=== PATIENT | female | born 1965 | race Two or more races ===

== ENCOUNTER 2017-01-01 19:50 | Emergency (ER) | payer BC ==
[~2017-01-01] VITALS: Ht 149.9 cm; Wt 80.3 kg
[~2017-01-01 19:50] MED LIST: AMI25T; CETI10TA57 PO; LOSA50TA6
[2017-01-01 20:53] LABS: Basophils # (auto) 0 uL; Basophils % (auto) 0.4 % (0.0-2.0); Eosinophils # (auto) 0.2 uL; Eosinophils % (auto) 2.2 % (0.0-7.0); Hematocrit 39.2 % (36.0-46.0); Hemoglobin 13.2 g/dL (12.2-16.2); Lymphocytes # (auto) 2.6 uL; Lymphocytes % (auto) 25.7 % (10.0-50.0); Mean Corpuscular Hemoglobin 31.4 pg (28.0-32.0); Mean Corpuscular Hgb Conc. 33.8 g/dL (32.0-36.0); Mean Corpuscular Volume 92.9 fL (80.0-100.0); Mean Platelet Volume 8.8 fL (7.4-10.4); Monocytes # (auto) 0.7 uL; Monocytes % (auto) 6.9 % (0.0-12.0); Neutrophils # (auto) 6.5 uL; Neutrophils % (auto) 64.8 % (37.0-80.0); Platelet Count (auto) 254 10^3/uL (140-450); Red Cell Distribution Width 13.2 % (11.6-16.0); White Blood Cell 10.1 10^3/uL (4.4-10.8)
[2017-01-01 21:09] LABS: Albumin 3.5 g/dL (3.4-5.0); BUN/Creatinine Ratio 22.7; Bilirubin, Total 0.2 mg/dL (0.2-1.0); Calcium 8.6 mg/dL (8.5-10.1); Total Protein 7.6 g/dL (6.4-8.2)
[2017-01-01 21:20] VITALS: BP 156/82
[2017-01-01 21:23] LABS: B-Type Natriuretic Peptide 375.29 pg/mL (0-100); Temperature: 23.1 C (20.0-25.0)
== END 2017-01-02 00:40 | disposition left against medical advice (07) ==
LOC: ER 19:54
DX: M79.89 Other specified soft tissue disorders (principal); Z53.21 Procedure and treatment not carried out due to patient leaving prior to being seen by health care provider
CPT/HCPCS: 36415; 71010; 80053; 83880; 85025

== ENCOUNTER 2023-10-10 21:35 | Inpatient (IN) | payer BC ==
[~2023-10-10] VITALS: Ht 149.9 cm; Wt 82.0 kg
[~2023-10-10 21:35] MED LIST changes: -AMI25T; +AMIT-118; +LOSA50TA46; -LOSA50TA6
[2023-10-10 22:33] LABS: Basophils # (auto) 0 10 ^3/uL (0-0.2); Basophils % (auto) 0.1 % (0.0-2.0); Eosinophils # (auto) 0.2 10 ^3/uL (0-0.8); Eosinophils % (auto) 1.5 % (0.0-7.0); Hemoglobin 16.4 g/dL (12.2-16.2); Lymphocytes # (auto) 2.9 10 ^3/uL (0.4-5.4); Lymphocytes % (auto) 23.3 % (10.0-50.0); Mean Corpuscular Hemoglobin 31.6 pg (28.0-32.0); Mean Corpuscular Hgb Conc. 32.8 g/dL (32.0-36.0); Mean Corpuscular Volume 96.3 fL (80.0-100.0); Monocytes # (auto) 0.6 10 ^3/uL (0-1.3); Monocytes % (auto) 4.4 % (0.0-12.0); Neutrophils # (auto) 8.8 10 ^3/uL (1.6-8.6); Neutrophils % (auto) 70.7 % (37.0-80.0); Nucleated Red Blood Cells % 0.1 %; Red Cell Distribution Width 12.9 % (11.8-14.3); White Blood Cell 12.5 10^3/uL (4.4-10.8)
[2023-10-10 22:48] LABS: Alanine Aminotransferase 25 U/L (7-40); Albumin 4.3 g/dL (3.2-4.8); Alkaline Phosphatase 96 U/L (46-116); Anion Gap 7 (5-15); Aspartate Aminotransferase 23 U/L (13-40); BUN/Creatinine Ratio 11.4 (10.0-20.0); Bilirubin, Total 0.4 mg/dL (0.2-1.0); Blood Urea Nitrogen 12 mg/dL (9-23); Calcium 9.4 mg/dL (8.5-10.1); Carbon Dioxide 29 mmol/L (20-30); Chloride 103 mmol/L (98-107); Glucose 137 mg/dL (74-106); Potassium 4.2 mmol/L (3.5-5.1); Sodium 139 mmol/L (136-145)
[2023-10-10 22:49] LABS: Total Protein 7.3 g/dL (5.7-8.2)
[2023-10-10] MEDS: SODIUM CHLORIDE 0.9% 1,000 ML IVB ONE (23:15)
[2023-10-10] MEDS: MORPHINE SULFATE 4 MG/ML SYR/VIAL IV ONE (23:15)
[2023-10-10] MEDS: ONDANSETRON ODT 4 MG TAB PO ONE (23:15)
[2023-10-11] VITALS (7 sets, daily range): BP systolic 91–128; BP diastolic 41–78; PULSE 56–80; RESP 13–18; TEMP 97.9–98.5; O2SAT 96–98
[2023-10-11] MEDS ORDERED: MORPHINE SULFATE INJ 2 MG/ml SYRG IV PRN ×2 (00:30→01:30)
[2023-10-11] MEDS ORDERED: DOCUSATE SOD 100 MG CAP PO PRN (00:30)
[2023-10-11] MEDS ORDERED: HYDROcodone-ACET 5/325MG TAB PO PRN (00:30)
[2023-10-11] MEDS: SODIUM CHLORIDE 0.9% 1,000 ML IV SCH (00:30)
[2023-10-11] MEDS: ONDANSETRON HCL 4 MG/2 ML VIAL IV ONE (00:39)
[2023-10-11] MEDS: cefTRIAXone 1GM/50ML D5W 50 ML IV ONE (00:39)
[2023-10-11] MEDS ORDERED: hydrALAZINE HCL 20 MG/ML VL IV PRN (01:00)
[2023-10-11] MEDS: metroNIDAZOLE 500MG/100ML 100 ML IV ONE (01:10)
[2023-10-11] MEDS ORDERED: NITROGLYCERIN 0.4 MG SL TAB SL PRN (01:30)
[2023-10-11] MEDS: SODIUM CHLORIDE 0.9% 1,000 ML IV ONE (02:15)
[2023-10-11] MEDS ORDERED: ATOR20TA PO (06:50)
[2023-10-11] MEDS ORDERED: APIX5TAB PO (06:50)
[2023-10-11] MEDS ORDERED: METO25TA93 PO (06:50)
[2023-10-11] MEDS ORDERED: MAGN400T40 PO (06:50)
[2023-10-11] MEDS: metroNIDAZOLE 500MG/100ML 100 ML IV SCH (10:52)
[2023-10-11] MEDS: ONDANSETRON HCL 4 MG/2 ML VIAL IV PRN (10:53)
[2023-10-11] MEDS ORDERED: FLEC100T PO (15:23)
[2023-10-11] MEDS: FLECAINIDE ACETATE 50 MG TAB PO SCH (22:24)
[2023-10-11] MEDS: ATORVASTATIN 20 MG TAB PO SCH (22:24)
[2023-10-12 05:00] VITALS: BP 105/56; PULSE 67; RESP 18; TEMP 98; O2SAT 95
[2023-10-12 07:30] VITALS: PULSE 68; RESP 17; O2SAT 97
[2023-10-12 08:40] VITALS: BP 110/72; PULSE 68; RESP 16; TEMP 98.1; O2SAT 97
[2023-10-12] MEDS: METOPROLOL SUCCINATE XL 50 MG TAB PO SCH (10:36)
[2023-10-12] MEDS: LOSARTAN POTASSIUM 50 MG TAB PO SCH (10:36)
[2023-10-12] MEDS ORDERED: GADOTERATE MEG 10 MMOL/20ml INJ (0.5MMOL/ml) IV ONE (12:00)
[2023-10-12 12:30] VITALS: BP 121/59; PULSE 66; RESP 16; TEMP 97.9; O2SAT 94
[2023-10-12 16:15] VITALS: BP 117/58; PULSE 61; RESP 17; TEMP 97.9; O2SAT 94
[2023-10-12 22:00] VITALS: BP 111/47; PULSE 56; RESP 18; TEMP 97.6; O2SAT 96
[2023-10-12] MEDS: ACETAMINOPHEN 325 MG TAB PO PRN (22:09)
[2023-10-13 05:00] VITALS: BP 120/62; PULSE 59; RESP 18; TEMP 98; O2SAT 93
[2023-10-13 07:30] VITALS: PULSE 65; RESP 18; O2SAT 95
[2023-10-13 08:30] VITALS: BP 126/62; PULSE 65; RESP 16; TEMP 97.8; O2SAT 95
[2023-10-13 13:00] VITALS: BP 130/68; PULSE 56; RESP 17; TEMP 98.4; O2SAT 97
[2023-10-13] MEDS ORDERED: METR-344 PO (14:29)
[2023-10-13] MEDS ORDERED: METO-6 PO (14:29)
[2023-10-13 16:11] VITALS: BP 124/64; PULSE 66; RESP 17; TEMP 97.8; O2SAT 98
[2023-10-13 16:15] VITALS: BP 127/62; PULSE 55; RESP 17; TEMP 97.9; O2SAT 97
== END 2023-10-13 17:15 | disposition home or self-care (01) | DRG 391 ==
LOC: ER 21:35 → OVERFLOW 10-11 01:23 → CENTRAL 10-11 04:15
PROVIDERS: ADMIT Nurse Practitioner Family; ATTEND Internal Medicine
DX: K52.9 Noninfective gastroenteritis and colitis, unspecified (principal); K85.90 Acute pancreatitis without necrosis or infection, unspecified; R00.1 Bradycardia, unspecified; R55 Syncope and collapse; I10 Essential (primary) hypertension; I48.91 Unspecified atrial fibrillation
CPT/HCPCS: 36415; 70450; 74176; 74183; 76705; 80053; 83690; 84484; 85025; 93005; 96361; 96365; 96375; 99291; G0378; J2405; J3490; Q0162

== ENCOUNTER 2024-09-15 11:31 | Inpatient (IN) | payer BC ==
[~2024-09-15] VITALS: Ht 124.5 cm; Wt 82.5 kg
[~2024-09-15 11:31] MED LIST changes: -AMIT-118; +APIX5TAB PO; +ATOR20TA PO; +FLEC100T PO; +LOSA-534; -LOSA50TA46; +MAGN400T40 PO; +METO-6 PO; +METO25TA93 PO; +METR-344 PO
--- NOTE | 2024-09-15 12:10 | ED.PDOC ---
GI ASSESSMENT HPI Comments This is a 58-year-old female who comes in with chief complaint of epigastric pain since approximately 2:00 a.m. in the morning. The patient states that the pain is sharp and radiates towards the right upper quadrant as well as towards the back. The patient denies any vomiting, nausea or diarrhea. At this time she states that the pain is a 10/10. She denies any history of this in the past. There has been no dysuria and she also states that the pain increases with deep respiration. There has been no fever or chills. The patient also denies any trauma. Chief Complaint: Abdominal Pain Time Seen by MD: 11:47 Primary Care Provider: pamela Tucker Notes: Nurses Notes, Medications, Allergies (No allergies to medications) Allergies: Coded Allergies: NO KNOWN ALLERGIES (Unverified , 06/02/15) Home Meds Active Scripts Metronidazole (Flagyl) 500 Mg Tab, 500 MG PO TID for 5 Days, #15 TAB Prov:VALEROMADHAVI Dempsey Jessica DO 10/13/23 Metoprolol Succinate (Toprol Xl) 50 Mg Tab, 25 MG PO DAILY for 30 Days, #15 TAB 3 Refills Prov:MADHAVI VALERO Jessica DO 10/13/23 Reported Medications Flecainide Acetate (Flecainide Acetate) 100 Mg Tab, 100 MG PO BID, TAB 10/11/23 Magnesium Oxide (MAGNESIUM OXIDE) 400 Mg Tab, 1 TAB PO DAILY, #30 TAB 5 Refills 10/11/23 Metoprolol Succinate (Metoprolol Succinate Er) 25 Mg Tab, 1 TAB PO DAILY, #30 TAB 5 Refills 10/11/23 Atorvastatin Calcium (Lipitor) 20 Mg Tab, 1 TAB PO DAILY, #90 TAB 1 Refill 10/11/23 Apixaban Base (ELIQUIS) 5 Mg Tab, 5 MG PO BID, TAB 10/11/23 Cetirizine Hcl (Zyrtec Hives Relief) 10 Mg Tab, 1 TAB PO PRN, #30 TAB 5 Refills 06/03/16 Losartan Potassium (Losartan Potassium) 50 Mg Tab, 50, #60 1 tab daily 06/03/16 Information Source: Patient Mode of Arrival: Ambulatory Timing: Hours (Started at 2:00 a.m. 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 History Family History Family History: Family hx of DM, Family hx of Cancer Social History Smoker: Non-Smoker Alcohol: Denies ETOH Use Drugs: Denies Drug Use Lives In: Home Constitutional: denies: chills, diaphoresis, fatigue, fever, malaise, sweats, weakness, others EENTM: denies: blurred vision, double vision, ear bleeding, ear discharge, ear drainage, ear pain, ear ringing, eye pain, eye redness, hearing loss, mouth pain, mouth swelling, nasal discharge, nose bleeding, nose congestion, nose pain, photophobia, tearing, throat pain, throat swelling, voice changes, others Respiratory: denies: cough, hemoptysis, orthopnea, SOB at rest, shortness of breath, SOB with excertion, stridor, wheezing, others Cardiovascular: denies: chest pain, dizzy spells, diaphoresis, Dyspnea on exertion, edema, irregular heart beat, left arm pain, lightheadedness, palpitations, PND, syncope, others Gastrointestinal: reports: abdominal pain; denies: abdomen distended, blood streaked bowels, constipated, diarrhea, dysphagia, difficulty swallowing, hematemesis, melena, nausea, poor appetite, poor fluid intake, rectal bleeding, rectal pain, vomiting, others Genitourinary: denies: abnormal vagina bleeding, burning, dyspareunia, dysuria, flank pain, frequency, hematuria, incontinence, pain, , vagina discharge, urgency, others Neurological: denies: dizziness, fainting, headache, left sided numbness, left sided weakness, numbness, paresthesia, pre-existing deficit, right sided numbness, right sided weakness, seizure, speech problems, tingling, tremors, wea kness, others Musculoskeletal: denies: back pain, gout, joint pain, joint swelling, muscle pain, muscle stiffness, neck pain, others Integumetry: denies: bruises, change in color, change in hair/nails, dryness, l aceration, lesions, lumps, rash, wounds, others Allergic/Immunocompromised: denies: Difficulty Healing, Frequent Infections, Hives, Itching, others Hematologic/Lymphatic: denies: anemia, blood clots, easy bleeding, easy bruising, swollen glands, others Endocrine: denies: excessive hunger, excessive sweating, excessive thirst, excessive urination, flushing, intolerance to cold, intolerance to heat, unexplained weight gain, unexplained weight loss, others Psychiatric: denies: anxiety, bipolar disorder, depression, hopeless, panic disorder, schizophrenia, sleepless, suicidal, others Physical Exam General Appearance: Moderate Distress HEENT: Normal ENT Inspection, Pharynx Normal, TMs Normal Neck: Full Range of Motion, Non-Tender, Normal, Normal Inspection Respiratory: Chest Non-Tender, Lungs Clear, No Accessory Muscle Use, No Re spiratory Distress, Normal Breath Sounds Cardiovascular: No Edema, No JVD, No Murmur, No Gallop, Normal Peripheral Pulses, Regular Rate/Rhythm Breast Exam: Deferred Gastrointestinal: Epigastric, No Organomegaly, No Pulsatile Mass, Normal Bowel Sounds, Soft, Tenderness Genitalia: Deferred Pelvic: Deferred Rectal: Deferred Extremities: No calf tenderness, Normal capillary refill, Normal inspection, Normal range of motion, Non-tender, No pedal edema Musculoskeletal : Apperance: Normal Neurologic: Alert, image scientist II-XII nml as Tested, No Motor Deficits, Normal Affect, Normal Mood, No Sensory Deficits Cerebellar Function: Normal Reflexes: Normal Skin: Dry, Normal Color, Warm Lymphatic: No Adenopathy EKG EKG : Pulse Rate (adult): 65 [place]: Normal Cardiac Rhythm: NSR ST: Nonsp Was a procedure done? Was a procedure done?: No GI differential Dx Differential Diagnosis: Diverticular disease, Gastritis/PUD, Gastroenteritis, Pancreatitis, Electrolyte Imbalance, Food Poisoning X-Ray, Labs, Meds, VS Vital Signs Date Time Temp Pulse Resp B/P (MAP) Pulse Ox O2 Delivery O2 Flow Rate FiO2 09/15/24 12:50 98.1 69 16 140/96 (111) 97 98.1 09/15/24 12:50 69 16 97 Room Air* 0 21 09/15/24 12:10 65 09/15/24 12:06 65 09/15/24 11:53 98.3 73 17 135/53 (80) 97 Lab Test 09/15/24 13:11 Range/Units White Blood Count 9.4 4.4-10.8 10^3/uL Red Blood Count 4.55 4.0-5.20 10^6/uL Hemoglobin 14.6 12.2-16.2 g/dL Hematocrit 43.5 36.0-46.0 % Mean Corpuscular Volume 95.5 80.0-100.0 fL Mean Corpuscular Hemoglobin 32.0 28.0-32.0 pg Mean Corpuscular Hemoglobin Concent 33.5 32.0-36.0 g/dL Red Cell Distribution Width 12.8 11.8-14.3 % Platelet Count 244 140-450 10^3/uL Mean Platelet Volume 8.3 6.9-10.8 fL Neutrophils (%) (Auto) 65.8 37.0-80.0 % Lymphocytes (%) (Auto) 23.2 10.0-50.0 % Monocytes (%) (Auto) 7.6 0.0-12.0 % Eosinophils (%) (Auto) 3.0 0.0-7.0 % Basophils (%) (Auto) 0.4 0.0-2.0 % Neutrophils # (Auto) 6.2 1.6-8.6 10 ^3/uL Lymphocytes # (Auto) 2.2 0.4-5.4 10 ^3/uL Monocytes # (Auto) 0.7 0-1.3 10 ^3/uL Eosinophils # (Auto) 0.3 0-0.8 10 ^3/uL Basophils # (Auto) 0 0-0.2 10 ^3/uL Nucleated Red Blood Cells 0.0 % Sodium Level 139 136-145 mmol/L Potassium Level 4.2 3.5-5.1 mmol/L Chloride Level 103 98-107 mmol/L Carbon Dioxide Level 27 20-31 mmol/L Anion Gap 9 5-15 Blood Urea Nitrogen 10 9-23 mg/dL Creatinine 0.66 0.550-1.02 mg/dL Glomerular Filtration Rate Calc 101 >90 mL/min BUN/Creatinine Ratio 15.2 10.0-20.0 Serum Glucose 93 74-106 mg/dL Calcium Level 10.4 8.7-10.4 mg/dL Total Bilirubin 0.6 0.2-1.0 mg/dL Aspartate Amino Transferase (AST) 18 13-40 U/L Alanine Aminotransferase (ALT) 27 7-40 U/L Alkaline Phosphatase 111 46-116 U/L Total Protein 7.6 5.7-8.2 g/dL Albumin 4.5 3.2-4.8 g/dL Lipase 28 12-53 U/L Current Medications Medications (Trade) Dose Ordered Sig/Jayla Route Start Time Stop Time Status Last Admin Pantoprazole Sodium (Protonix) 40 mg ONCE ONCE IV 09/15/24 12:15 09/15/24 12:16 DC 09/15/24 12:50 EXAM: US GALLBLADDER IMPRESSION: 1. Heterogeneous echotexture of the liver with a 7.7 cm echogenic area and multiple hypoechoic areas. This may reflect heterogeneous echotexture in the setting of underlying parenchymal disease. No discrete mass was identified on prior MRI report from 2023. Either a repeat MRI with intravenous contrast may be obtained, or short-term follow-up ultrasound is recommended in 6 months. 2. No acute biliary pathology. At this time the patient will be admitted The patient was given Protonix 40 mg IV push The patient's CBC and chemistry panel is within normal limits The liver enzymes is negative The patient was being admitted Images Reviewed?: Images reviewed and evaluated by me Time of 1ST Reevaluation: 12:10 Reevaluation 1ST: Unchanged Patient Education/Counseling: Diagnosis, Treatment, Prognosis Family Education/Counseling: No Family Present Departure 1 Departure Time of Disposition: 14:12 Impression: Primary Impression: Intractable abdominal pain Disposition: 09 ADMITTED INPATIENT Admit to: Med Surg Condition: Fair Critical Care Note Critical Care Time?: No Stability Stability form required: Yes Unstable for transfer: ED Physician Assesment (Clinical assesment) Heart Score Heart Score: Heart Score Response (Comments) Value History N/A 0 EKG N/A 0 Age N/A 0 Risk Factors N/A 0 Troponin N/A 0 Total 0 I personally scribed for ALVERTO DE SANTIAGO MD ([email or web address]) on 09/15/24 at 13:00. Electronically submitted by Rod [email or web address]). ALVERTO DE SANTIAGO MD Sep 15, 2024 12:10
--- NOTE | 2024-09-15 12:48 | DVH ---
EXAM: US GALLBLADDER INDICATION: pain TECHNIQUE: Multiple real-time sonographic images were obtained of the right upper quadrant. COMPARISON: US ABDOMEN LIMITED on DOS: 10/11/23; report from prior MRI of the abdomen from 10/12/2023. FINDINGS: The liver demonstrates heterogeneous echotexture. There is an echogenic area in the right l obe measuring 6.2 x 5.1 x 7.7 cm, not felt to represent a discrete mass, with adjacent hypoechoic are as. The overall appearance is similar to the prior ultrasound from 10/11/2023. Liver measures 15 cm. There is hepatopedal color doppler flow in the main portal vein. There is no intrahepatic biliary erica gaviota dilatation. The gallbladder is without stones or sludge. The gallbladder wall measures 0.2 cm. The common michael e duct measures 0.3 cm. There is a negative sonographic Gomez's sign. The right kidney measures 9.1 cm. The right kidney is normal in contour, size, and shape. The echo genicity is normal. There is no hydronephrosis. The pancreas is not well visualized due to overlying bowel gas. Visualized portions of the aorta and inferior vena cava are unremarkable. No evidence of ascites. IMPRESSION: 1. Heterogeneous echotexture of the liver with a 7.7 cm echogenic area and multiple hypoechoic areas. This may reflect heterogeneous echotexture in the setting of underlying parenchymal disease. No disc rete mass was identified on prior MRI report from 2023. Either a repeat MRI with intravenous contras t may be obtained, or short-term follow-up ultrasound is recommended in 6 months. 2. No acute biliary pathology.
[2024-09-15 12:50] VITALS: PULSE 69; RESP 16; O2SAT 97
[2024-09-15] MEDS: PANTOPRAZOLE 40 MG/10 ML VIAL INJ IV ONE (12:50)
[2024-09-15 13:31] LABS: Basophils # (auto) 0 10 ^3/uL (0-0.2); Basophils % (auto) 0.4 % (0.0-2.0); Eosinophils # (auto) 0.3 10 ^3/uL (0-0.8); Hematocrit 43.5 % (36.0-46.0); Hemoglobin 14.6 g/dL (12.2-16.2); Lymphocytes # (auto) 2.2 10 ^3/uL (0.4-5.4); Lymphocytes % (auto) 23.2 % (10.0-50.0); Mean Corpuscular Hgb Conc. 33.5 g/dL (32.0-36.0); Mean Corpuscular Volume 95.5 fL (80.0-100.0); Monocytes # (auto) 0.7 10 ^3/uL (0-1.3); Monocytes % (auto) 7.6 % (0.0-12.0); Neutrophils # (auto) 6.2 10 ^3/uL (1.6-8.6); Neutrophils % (auto) 65.8 % (37.0-80.0); Platelet Count (auto) 244 10^3/uL (140-450); Red Blood Cells 4.55 10^6/uL (4.0-5.20); Red Cell Distribution Width 12.8 % (11.8-14.3); White Blood Cell 9.4 10^3/uL (4.4-10.8)
[2024-09-15 13:51] LABS: Alanine Aminotransferase 27 U/L (7-40); Albumin 4.5 g/dL (3.2-4.8); Alkaline Phosphatase 111 U/L (46-116); Anion Gap 9 (5-15); Aspartate Aminotransferase 18 U/L (13-40); BUN/Creatinine Ratio 15.2 (10.0-20.0); Bilirubin, Total 0.6 mg/dL (0.2-1.0); Blood Urea Nitrogen 10 mg/dL (9-23); Calcium 10.4 mg/dL (8.7-10.4); Carbon Dioxide 27 mmol/L (20-31); Chloride 103 mmol/L (98-107); Glucose 93 mg/dL (74-106); Lipase 28 U/L (12-53); Potassium 4.2 mmol/L (3.5-5.1); Sodium 139 mmol/L (136-145); Total Protein 7.6 g/dL (5.7-8.2)
[2024-09-15] MEDS ORDERED: DOCUSATE SOD 100 MG CAP PO PRN (17:15)
[2024-09-15] MEDS ORDERED: MORPHINE SULFATE INJ 2 MG/ml SYRG IV PRN ×2 (17:15→19:15)
[2024-09-15] MEDS ORDERED: ONDANSETRON HCL 4 MG/2 ML VIAL IV PRN (17:15)
[2024-09-15] MEDS ORDERED: HYDROcodone-ACET 5/325MG TAB PO PRN (17:15)
--- NOTE | 2024-09-15 19:08 | DVHHP2 ---
History of Present Illness Reason for Visit: Intractable abdominal pain History of Present Illness The patient is a 58-year-old female with past medical history of AFib, hypertension, and hyperlipidemia who presented to [facility] ED with complaint of epigastric abdominal pain. Patient reports symptoms as sharp, rad iates to worse her right upper quadrant, back, feeling palpitation, rating 10/10 numeric scale, getting worse that prompted this visit. Patient was seen and evaluated in the ED, laboratory data shows WBC 9.4, platelets 244, sodium 139, potassium 4.2, BUN 10, creatinine 0.66, GFR 101, glucose 93, lipase 28, blood pressure 140/96, heart rate 69, temperature 98.1 F, O2 saturation 97% on room air. Gallbladder ultrasound revealing heterogeneous echotexture of the liver with a 7.7 cm echogenic area and multiple hypoechoic areas, this may reflect heterogeneous echotexture in the setting of underlying parenchymal disease, no discrete mass was identified, no acute biliary pathology. Please see medication orders section in the computer. On my assessment, patient denied chest pain, no headache, no dizziness, no nausea, no vomiting, no fever, no chills. Patient was admitted for further evaluation and medical management. Past Medical History AFIB, High Lipids, HTN Past Surgical History section Family History Reviewed, noncontributory to the management of this case. Past Social History The patient lives at home, denies smoking, alcohol or illicit drugs abuse. Review of Systems Constitutional: Yes: Weakness; No: Fever, Chills, Sweats, Malaise, Other Eyes: No: Pain, Vision change, Conjunctivae inflammation, Eyelid inflammation, Other, Redness ENT: No: Ear pain, Ear discharge, Nose pain, Nose discharge, Nose congestion, Mouth pain, Mouth swelling, Throat pain, Throat swelling, Other Respiratory: No: Cough, Dry, Shortness of breath, SOB with excertion, Wheezing, Hemoptysis, Pleuritic Pain, Sputum, Wheezing, Other Cardiovascular: Palpitations; No: Chest Pain, Orthopnea, Paroxysmal Noc. Dyspnea, Edema, Lt Headedness, Other Gastrointestinal: Abdominal Pain; No: Nausea, Vomiting, Diarrhea, Constipation, Melena, Hematochezia, Other Genitourinary: No Dysuria, No Frequency, No Incontinence, No Hematuria, No Retention, No Other Musculoskeletal: No: other, neck pain, shoulder pain, arm pain, back pain, hand pain, leg pain, foot pain Skin: No: Rash, Lesions, Jaundice, Bruising, Other Neurological: No: Weakness, Numbness, Incoordination, Change in speech, Confusion, Seizures, Other Allergies: Coded Allergies: NO KNOWN ALLERGIES (Unverified , 06/02/15) Medications Current Medications Medications Dose Ordered Sig/Jayla Route Start Time Stop Time Status Last Admin Dose Admin Metoprolol Tartrate 25 mg BID PO 09/15/24 22:00 Atorvastatin Calcium 20 mg HS PO 09/15/24 22:00 Pantoprazole Sodium 40 mg DAILY IV 09/16/24 10:00 Sodium Chloride 1,000 ml @ 60 mls/hr [id number] IV 09/15/24 17:15 Acetaminophen/ Hydrocodone Bitart 1 tab Q4HP PRN PO 09/15/24 17:15 Ondansetron HCl 4 mg Q4HP PRN IV 09/15/24 17:15 Docusate Sodium 100 mg BIDPRN PRN PO 09/15/24 17:15 Acetaminophen 650 mg Q6HP PRN PO 09/15/24 17:15 Morphine Sulfate 2 mg Q4HPRN PRN IV 09/15/24 17:15 Apixaban 5 mg BID PO 09/15/24 22:00 Exam Vital Signs Vital Signs Date Time Temp Pulse Resp B/P (MAP) Pulse Ox O2 Delivery O2 Flow Rate FiO2 09/15/24 12:50 98.1 69 16 140/96 (111) 97 98.1 09/15/24 12:50 Room Air* 0 21 General Appearance: Alert, Oriented X3, Cooperative, No acute distress HEENT: Atraumatic, PERRLA, EOMI, Mucous membr. moist/pink Respiratory: Clear to auscultation, Normal air movement Cardiovascular: Regular rate, Normal S1, Normal S2, No murmurs Abdominal: Normal bowel sounds, Soft, No tenderness, No hepatospenomegaly, No masses Extremities: No clubbing, No cyanosis, No edema, Normal pulses, No tenderness/swelling Skin: No rashes, No breakdown, No significant lesion Neuro: Normal speech, Normal tone, Sensation intact, Cranial nerves 3-12 NL, Reflexes 2+, Other (Generalized weakness) Psych/Mental Status: Mental status NL, Mood NL Labs/Xrays Labs Test 09/15/24 13:11 Range/Units White Blood Count 9.4 4.4-10.8 10^3/uL Red Blood Count 4.55 4.0-5.20 10^6/uL Hemoglobin 14.6 12.2-16.2 g/dL Hematocrit 43.5 36.0-46.0 % Mean Corpuscular Volume 95.5 80.0-100.0 fL Mean Corpuscular Hemoglobin 32.0 28.0-32.0 pg Mean Corpuscular Hemoglobin Concent 33.5 32.0-36.0 g/dL Red Cell Distribution Width 12.8 11.8-14.3 % Platelet Count 244 140-450 10^3/uL Mean Platelet Volume 8.3 6.9-10.8 fL Neutrophils (%) (Auto) 65.8 37.0-80.0 % Lymphocytes (%) (Auto) 23.2 10.0-50.0 % Monocytes (%) (Auto) 7.6 0.0-12.0 % Eosinophils (%) (Auto) 3.0 0.0-7.0 % Basophils (%) (Auto) 0.4 0.0-2.0 % Neutrophils # (Auto) 6.2 1.6-8.6 10 ^3/uL Lymphocytes # (Auto) 2.2 0.4-5.4 10 ^3/uL Monocytes # (Auto) 0.7 0-1.3 10 ^3/uL Eosinophils # (Auto) 0.3 0-0.8 10 ^3/uL Basophils # (Auto) 0 0-0.2 10 ^3/uL Nucleated Red Blood Cells 0.0 % Sodium Level 139 136-145 mmol/L Potassium Level 4.2 3.5-5.1 mmol/L Chloride Level 103 98-107 mmol/L Carbon Dioxide Level 27 20-31 mmol/L Anion Gap 9 5-15 Blood Urea Nitrogen 10 9-23 mg/dL Creatinine 0.66 0.550-1.02 mg/dL Glomerular Filtration Rate Calc 101 >90 mL/min BUN/Creatinine Ratio 15.2 10.0-20.0 Serum Glucose 93 74-106 mg/dL Calcium Level 10.4 8.7-10.4 mg/dL Total Bilirubin 0.6 0.2-1.0 mg/dL Aspartate Amino Transferase (AST) 18 13-40 U/L Alanine Aminotransferase (ALT) 27 7-40 U/L Alkaline Phosphatase 111 46-116 U/L Total Protein 7.6 5.7-8.2 g/dL Albumin 4.5 3.2-4.8 g/dL Lipase 28 12-53 U/L PATIENT: ANANTH BROWN ACCT: [id number] UNIT: [id number] : 1965 LOC: ER ROOM / BED: / AGE / SEX: 58 / F ADM STATUS: REG ER SERVICE 1201 ORDERING PHYSICIAN: ALVERTO DE SANTIAGO MD PROCEDURE(s): GBUS - GALLBLADDER REASON: pain ORDER NUMBER(s): [id number], ACCESSION NUMBER(s): [id number] EXAM: US GALLBLADDER INDICATION: pain TECHNIQUE: Multiple real-time sonographic images were obtained of the right upper quadrant. COMPARISON: US ABDOMEN LIMITED on DOS: 10/11/23; report from prior MRI of the abdomen from 10/12/2023. FINDINGS: The liver demonstrates heterogeneous echotexture. There is an echogenic area in the right lobe measuring 6.2 x 5.1 x 7.7 cm, not felt to represent a discrete mass, with adjacent hypoechoic areas. The overall appearance is similar to the prior ultrasound from 10/11/2023. Liver measures 15 cm. There is hepatopedal color doppler flow in the main portal vein. There is no intrahepatic biliary ductal dilatation. The gallbladder is without stones or sludge. The gallbladder wall measures 0.2 cm. The common bile duct measures 0.3 cm. There is a negative sonographic Gomez's sign. The right kidney measures 9.1 cm. The right kidney is normal in contour, size, and shape. The echogenicity is normal. There is no hydronephrosis. The pancreas is not well visualized due to overlying bowel gas. Visualized portions of the aorta and inferior vena cava are unremarkable. No evidence of ascites. IMPRESSION: 1. Heterogeneous echotexture of the liver with a 7.7 cm echogenic area and multiple hypoechoic areas. This may reflect heterogeneous echotexture in the setting of underlying parenchymal disease. No discrete mass was identified on prior MRI report from 2023. Either a repeat MRI with intravenous contrast may be obtained, or short-term follow-up ultrasound is recommended in 6 months. 2. No acute biliary pathology. Assessment/Plan Assessment/Plan Intractable abdominal pain Generalized weakness Plan 1. Admit to med surge units 2. Breathing treatment 3. Pain control management 4. Management of fluids and electrolytes 5. Consultation for hospitalist 6. Diagnostic tests gallbladder ultrasound 7. DVT prophylaxis on SCDs 8. Repeat labs CBC, CMP in a.m. 9. Continue with current medical management 10. Treatment plan discussed with patient and RN. Patient verbalized understanding. Plan discussed with: Patient, Other (RN) My Orders Orders - YESSI OJEDA DNP Procedure Category Date Status Time Metoprolol Tartrate PHA 09/15/24 In Process Tablet (Lopressor Ta 22:00 Atorvastatin (Lipitor) PHA 09/15/24 In Process 22:00 Pantoprazole PHA 09/16/24 In Process (Protonix) 10:00 Allergies CURRY 09/15/24 In Process 17:15 Code Status CODE 09/15/24 Transmitted 17:15 Sodium Chloride 0.9% PHA 09/15/24 In Process 17:15 Oxygen Per Hour RT 09/15/24 Transmitted 17:15 Hydrocodone-Acet PHA 09/15/24 In Process 5/325mg Tab ([place] 17:15 Ondansetron Hcl PHA 09/15/24 In Process (Zofran) 17:15 Docusate Sodium PHA 09/15/24 In Process Capsule (Colace 17:15 Complete Blood Count LAB 09/16/24 Verified 04:00 Comprehensive LAB 09/16/24 Verified Metabolic Panel 04:00 Condition: Serious CURRY 09/15/24 In Process 17:15 Acetaminophen Tablet PHA 09/15/24 In Process (Tylenol Tablet) 17:15 Clear Liq Diet DIET 09/15/24 Transmitted Dinner Bedrest With Bathroom CURRY 09/15/24 In Process Privileg 17:15 Morphine Sulfate PHA 09/15/24 In Process Injection 17:15 Sequential CURRY 09/15/24 In Process Compression Device Apixaban (Eliquis) PHA 09/15/24 In Process 22:00 Problem List: (1) Intractable abdominal pain (2) Generalized weakness Date of Service: Sep 15, 2024 Billing Provider: YESSI OJEDA DNP Common Visit Codes: 62588-LHQIDBS INP/OBS CARE (HIGH) YESSI OJEDA DNP Sep 15, 2024 19:08
[2024-09-15] MEDS ORDERED: NITROGLYCERIN 0.4 MG SL TAB SL PRN (19:15)
[2024-09-15] MEDS: SODIUM CHLORIDE 0.9% 1,000 ML IV SCH (19:30)
[2024-09-15 20:07] VITALS: PULSE 113; RESP 18; O2SAT 98
[2024-09-15 21:15] VITALS: BP 113/59; PULSE 59; RESP 20; TEMP 97.8; O2SAT 96
[2024-09-15] MEDS: ACETAMINOPHEN 325 MG TAB PO PRN (21:39)
[2024-09-15] MEDS: ATORVASTATIN 20 MG TAB PO SCH (21:52)
[2024-09-15] MEDS: METOPROLOL TARTRATE 25 MG TAB PO SCH (21:52)
[2024-09-15] MEDS: APIXABAN 5 MG TAB PO SCH (22:16)
[2024-09-15] MEDS ORDERED: LOSA-535 PO (22:43)
[2024-09-15 23:39] VITALS: BP 121/83; PULSE 97; RESP 20; TEMP 97.6; O2SAT 97
[2024-09-16 01:00] VITALS: BP 101/62; PULSE 58; RESP 16; TEMP 98; O2SAT 97
[2024-09-16 05:00] VITALS: BP 118/67; PULSE 63; RESP 17; TEMP 98; O2SAT 98
--- NOTE | 2024-09-16 06:42 | ECG ---
[facility] Test Date: 2024-09-15 Test Time: 12:06:38 Pat Name: ANANTH BROWN Department: ER Room: 0221 B Gender: F Card Table Attendant: REJI : 1965 Requested By: ALVERTO DE SANTIAGO Order Number: [id number] Reading MD: Raul Beavers Measurements Intervals [place] Rate: 65 P: 42 MN: 179 QRS: 68 QRSD: 94 T: 0 QT: 443 QTc: 461 Interpretive Statements Sinus rhythm Nonspecific repol abnormality, inferior leads Borderline ST elevation, anterior leads Electronically Signed On 09-16-2024 13:24:19 PST by Raul Beavers Please click the below link to view image of tracing.
[2024-09-16 07:10] LABS: Basophils # (auto) 0.1 10 ^3/uL (0-0.2); Basophils % (auto) 0.7 % (0.0-2.0); Eosinophils # (auto) 0.3 10 ^3/uL (0-0.8); Eosinophils % (auto) 3.5 % (0.0-7.0); Hematocrit 40.3 % (36.0-46.0); Hemoglobin 13.6 g/dL (12.2-16.2); Lymphocytes # (auto) 1.9 10 ^3/uL (0.4-5.4); Lymphocytes % (auto) 23.7 % (10.0-50.0); Mean Corpuscular Hgb Conc. 33.7 g/dL (32.0-36.0); Mean Corpuscular Volume 94.8 fL (80.0-100.0); Monocytes # (auto) 0.6 10 ^3/uL (0-1.3); Monocytes % (auto) 7.8 % (0.0-12.0); Neutrophils # (auto) 5.3 10 ^3/uL (1.6-8.6); Neutrophils % (auto) 64.3 % (37.0-80.0); Platelet Count (auto) 236 10^3/uL (140-450); Red Blood Cells 4.25 10^6/uL (4.0-5.20); Red Cell Distribution Width 12.7 % (11.8-14.3); White Blood Cell 8.2 10^3/uL (4.4-10.8)
[2024-09-16 07:17] LABS: Alanine Aminotransferase 23 U/L (7-40); Albumin 4.5 g/dL (3.2-4.8); Alkaline Phosphatase 112 U/L (46-116); Anion Gap 9 (5-15); Aspartate Aminotransferase 19 U/L (13-40); BUN/Creatinine Ratio 13.5 (10.0-20.0); Blood Urea Nitrogen 10 mg/dL (9-23); Calcium 9.9 mg/dL (8.7-10.4); Carbon Dioxide 27 mmol/L (20-31); Chloride 103 mmol/L (98-107); Glucose 99 mg/dL (74-106); Sodium 139 mmol/L (136-145)
[2024-09-16 07:18] LABS: Bilirubin, Total 0.6 mg/dL (0.2-1.0); Total Protein 7.1 g/dL (5.7-8.2)
[2024-09-16 08:00] VITALS: PULSE 88; RESP 18; O2SAT 98
[2024-09-16] MEDS: PANTOPRAZOLE 40 MG/10 ML VIAL INJ IV SCH (08:05)
[2024-09-16 08:56] VITALS: BP 109/66; PULSE 69; RESP 20; TEMP 98.1; O2SAT 91
[2024-09-16] MEDS ORDERED: PATIENTS OWN MEDICATION (Flecainide Acetate 100 MG) PO SCH ×2 (10:30→22:00)
--- NOTE | 2024-09-16 10:59 | DVHPN2 ---
Subjective Patient continues to report having right upper quadrant as well as epigastric pain. States the pain is worse with taking deep breaths , also noted with eating. Reviewed: Care Plan, H&P, Labs, Medications Changes from previous H/P or p: No Changes Eyes: No Pain, No Vision change, No Conjunctivae inflammation, No Eyelid inflammation, No Other, No Redness ENT: No Ear pain, No Ear discharge, No Nose pain, No Nose discharge, No Nose congestion, No Mouth pain, No Mouth swelling, No Throat pain, No Throat swelling, No Other Cardiovascular: No Chest Pain; Palpitations; No Orthopnea, No Paroxysmal Noc. Dyspnea, No Edema, No Lt Headedness, No Other Respiratory: No Cough, No Dry, No Shortness of breath, No SOB with excertion, No Wheezing, No Hemoptysis, No Pleuritic Pain, No Sputum, No Other Gastrointestinal: No Nausea, No Vomiting; Abdominal Pain; No Diarrhea, No Constipation, No Melena, No Hematochezia, No Other Genitourinary: No Dysuria, No Frequency, No Incontinence, No Hematuria, No Retention, No Other Musculoskeletal: No other, No neck pain, No shoulder pain, No arm pain, No back pain, No hand pain, No leg pain, No foot pain Skin: No Rash, No Lesions, No Jaundice, No Bruising, No Other Objective Vitals Vital Signs Date Time Temp Pulse Resp B/P (MAP) Pulse Ox O2 Delivery O2 Flow Rate FiO2 09/16/24 08:56 98.1 69 20 109/66 (80) 91 98.1 09/16/24 08:00 Room Air* 0 21 Intake/Output Intake and Output 09/16/24 06:59 Intake Total 240 ml Balance 240 ml Intake Oral 240 ml # Voids 2 General Appearance: Alert, Oriented X3, Cooperative, mild distress HEENT: Atraumatic, PERRLA Lungs: Clear to auscultation, Normal air movement Cardiovascular: Normal S1, Normal S2 Abdomen: Normal bowel sounds Genitourinary: No Apparent Abnormalities Back: Flank Tenderness, Midline Tenderness Musculoskeletal: Normal sensory function, Normal motor function Neuro: Normal gait, Normal speech Psych/Mental Status: Mental status NL, Mood NL Medications Current Medications Medications Dose Ordered Sig/Jayla Route Start Time Stop Time Status Last Admin Dose Admin Atorvastatin Calcium 20 mg HS PO 09/15/24 22:00 09/15/24 21:52 20 MG Pantoprazole Sodium 40 mg DAILY IV 09/16/24 10:00 09/16/24 08:05 40 MG Sodium Chloride 1,000 ml @ 60 mls/hr [id number] IV 09/15/24 17:15 09/15/24 19:30 60 MLS/HR Acetaminophen/ Hydrocodone Bitart 1 tab Q4HP PRN PO 09/15/24 17:15 Ondansetron HCl 4 mg Q4HP PRN IV 09/15/24 17:15 Docusate Sodium 100 mg BIDPRN PRN PO 09/15/24 17:15 Acetaminophen 650 mg Q6HP PRN PO 09/15/24 17:15 09/15/24 21:39 650 MG Morphine Sulfate 2 mg Q4HPRN PRN IV 09/15/24 17:15 Apixaban 5 mg BID PO 09/15/24 22:00 09/16/24 08:04 5 MG Nitroglycerin 0.4 mg Q5MINP PRN SL 09/15/24 19:15 Morphine Sulfate 2 mg Q30M PRN IV 09/15/24 19:15 Patient Own Medication 100 mg BID PO 09/16/24 10:30 UNV Flecainide Acetate 100 mg BID PO 09/16/24 22:00 Laboratory Results Laboratory Tests 09/16/24 06:07 Chemistry Test 09/15/24 13:11 09/16/24 06:07 Albumin 4.5 g/dL (3.2-4.8) 4.5 g/dL (3.2-4.8) Calcium Level 10.4 mg/dL (8.7-10.4) 9.9 mg/dL (8.7-10.4) Total Protein 7.6 g/dL (5.7-8.2) 7.1 g/dL (5.7-8.2) Lipid panel Test 09/15/24 13:11 Lipase 28 U/L (12-53) LFT Test 09/15/24 13:11 09/16/24 06:07 Alanine Aminotransferase (ALT) 27 U/L (7-40) 23 U/L (7-40) Alkaline Phosphatase 111 U/L (46-116) 112 U/L (46-116) Aspartate Amino Transferase (AST) 18 U/L (13-40) 19 U/L (13-40) Total Bilirubin 0.6 mg/dL (0.2-1.0) 0.6 mg/dL (0.2-1.0) Labs and/or images reviewed: Labs reviewed by me, Image(s) reviewed by me Assessment/Plan Assessment/Plan Impression: -obesity -atrial fibrillation -rule out acalculous cholecystitis -rule out GERD, peptic ulcer disease Plan: -given patient has had gallbladder ultrasound, history of MRI of the liver, as well as CT of abdomen and pelvis recently without any acute findings, GI consultation will be obtained. Given patient's history of right upper quadrant and epigastric pain that transitions up into her chest as well as worsening pain with eating, we will rule out acalculous cholecystitis. Patient will also be need to be evaluated for possible upper endoscopy. -PPI -continue rate control with flecainide -NPO at this time -HIDA scan with CCK Total time spent with patient discussing and formulating plan of care: 35 minutes. This medical document was created using an electronic medical record system with [employer] dictation system. Although this document has been carefully reviewed, there may still be some phonetic and typographical errors. These areas are purely typographical due to imperfections of the software programs, and do not reflect any compromise in the patient's medical care. Plan discussed with: Patient, Other (RN) My Orders Orders - PRASANNA BRADY NP Procedure Category Date Status Time Npo (Nothing By DIET 09/16/24 Transmitted Mouth) Diet Lunch Nm Hida Scan NM 09/16/24 Logged 10:28 * Gi Dvh [employer] CONS 09/16/24 Transmitted 10:28 Flecainide Tablet PHA 09/16/24 In Process (Tambocor Tablet) 22:00 Date of Service: Sep 16, 2024 Billing Provider: PRASANNA BRADY NP Common Visit Codes: [id number] INP/OBS CARE(HIGH) PRASANNA BRADY NP Sep 16, 2024 10:59
[2024-09-16 11:28] LABS: Hepatitis C Antibody Negative (Negative)
[2024-09-16 12:58] VITALS: BP 118/70; PULSE 61; RESP 20; TEMP 97.9; O2SAT 96
[2024-09-16 13:44] LABS: Hepatitis B Surface Antigen Negative (Negative)
--- NOTE | 2024-09-16 14:05 | DVHINCON2 ---
GI Consult Consult Note GI consult note Date of Consultation: 09/16/2024 Chief Complaint: Abdominal pain Referring Physician: Anne Marie GARCIAS H&P: 58-year-old female presented to the ER with epigastric abdominal pain Patient complains of right upper quadrant pain at this time which started one day ago. Patient has had similar episodes of pain in the past and has been evaluated at [facility] MRI with IV contrast which was unremarkable in 2023 Patient admits to pain being worse when she is swallowing her food. No nausea or vomiting. No history of GERD Last BM this morning. No melena or red blood in stool. No weight loss SP colonoscopy May 2023, WNL per patient gastro group SP EGD six years ago Past Medical History: AFIB, High Lipids, HTN Past Surgical History: Social History: NO smoking, drinking ETOH and use of illegal drugs. Family History: Noncontributory Review of Systems: Constitutional: no fever, chill, weight loss HEENT: no eye pain, no hearing loss, no oral lesion, no scleral icterus Heart: no chest pain, no chest pressure Lung: no cough, no dyspnea with exertion Abdomen: see HPI Physical exam: General: NAD, AAOX3 Chest: lung campos clear to auscultation Heart: RRR, no murmur Abdomen: Mild RUQ tenderness to palpation, +BS Labs: Labs Test 09/16/24 06:07 09/15/24 13:11 Range/Units White Blood Count 8.2 4.4-10.8 10^3/uL Red Blood Count 4.25 4.0-5.20 10^6/uL Hemoglobin 13.6 12.2-16.2 g/dL Hematocrit 40.3 36.0-46.0 % Mean Corpuscular Volume 94.8 80.0-100.0 fL Mean Corpuscular Hemoglobin 32.0 28.0-32.0 pg Mean Corpuscular Hemoglobin Concent 33.7 32.0-36.0 g/dL Red Cell Distribution Width 12.7 11.8-14.3 % Platelet Count 236 140-450 10^3/uL Mean Platelet Volume 8.3 6.9-10.8 fL Neutrophils (%) (Auto) 64.3 37.0-80.0 % Lymphocytes (%) (Auto) 23.7 10.0-50.0 % Monocytes (%) (Auto) 7.8 0.0-12.0 % Eosinophils (%) (Auto) 3.5 0.0-7.0 % Basophils (%) (Auto) 0.7 0.0-2.0 % Neutrophils # (Auto) 5.3 1.6-8.6 10 ^3/uL Lymphocytes # (Auto) 1.9 0.4-5.4 10 ^3/uL Monocytes # (Auto) 0.6 0-1.3 10 ^3/uL Eosinophils # (Auto) 0.3 0-0.8 10 ^3/uL Basophils # (Auto) 0.1 0-0.2 10 ^3/uL Nucleated Red Blood Cells 0.0 % Sodium Level 139 136-145 mmol/L Potassium Level 4.0 3.5-5.1 mmol/L Chloride Level 103 98-107 mmol/L Carbon Dioxide Level 27 20-31 mmol/L Anion Gap 9 5-15 Blood Urea Nitrogen 10 9-23 mg/dL Creatinine 0.74 0.550-1.02 mg/dL Glomerular Filtration Rate Calc 93 >90 mL/min BUN/Creatinine Ratio 13.5 10.0-20.0 Serum Glucose 99 74-106 mg/dL Calcium Level 9.9 8.7-10.4 mg/dL Total Bilirubin 0.6 0.2-1.0 mg/dL Aspartate Amino Transferase (AST) 19 13-40 U/L Alanine Aminotransferase (ALT) 23 7-40 U/L Alkaline Phosphatase 112 46-116 U/L Total Protein 7.1 5.7-8.2 g/dL Albumin 4.5 3.2-4.8 g/dL Hepatitis B Surface Antigen Negative Negative Hepatitis C Antibody Negative Negative Lipase 28 12-53 U/L Imaging: Abdominal ultrasound IMPRESSION: 1. Heterogeneous echotexture of the liver with a 7.7 cm echogenic area and multiple hypoechoic areas. This may reflect heterogeneous echotexture in the setting of underlying parenchymal disease. No discrete mass was identified on prior MRI report from 2023. Either a repeat MRI with intravenous contrast may be obtained, or short-term follow-up ultrasound is recommended in 6 months. 2. No acute biliary pathology. MRI with contrast 10/12/2023 IMPRESSION: No focal liver lesion. Somewhat heterogeneous hepatic steatosis. Additional nonacute findings as detailed above. Assessment: Abdominal pain Abdominal results on ultrasound Plan: Discussed with Dr. Dean CEA, AFP, CA 19-9 IR consult for liver biopsy Possible EGD plan for Saturday, patient is agreeable to procedure Thank you for this consult Date of Service: Sep 16, 2024 Billing Provider: JEAN-PIERRE ANGELES Common Visit Codes: CONSULT ONLY Consultation Codes: [id number] CONSULT <45MIN JEAN-PIERRE ANGELES Sep 16, 2024 14:05
--- NOTE | 2024-09-16 19:02 | DVH ---
Procedure: NM NM HIDA SCAN Exam Date: 09/16/2024 03:50 PM Clinical History: Abdominal pain Comparison Study: 09/15/2024 Nuclear Medicine Hepatobiliary Scan. Technique: Following the intravenous administration of 5.2 mCi of technetium 99m labeled Choletec multiple plana r abdominal planar images were obtained in anterior projection in 5 minute intervals for45 minutes . Right lateral images were obtained at 45 minutes after injection. Findings: The liver appears grossly normal in size. There is no abnormal persistence of the cardiac or blood po ol activity. There is prompt visualization of the gallbladder and excretion of activity into the smal l bowel. Impression: Unremarkable hepatobiliary study without evidence of acute cholecystitis.
[2024-09-16 21:00] VITALS: BP 112/55; PULSE 59; RESP 17; TEMP 98; O2SAT 97
[2024-09-16] MEDS: FLECAINIDE ACETATE 50 MG TAB PO SCH (21:42)
[2024-09-17] VITALS (7 sets, daily range): BP systolic 97–136; BP diastolic 48–72; PULSE 56–69; RESP 17–19; TEMP 97.7–98.2; O2SAT 96–98
--- NOTE | 2024-09-17 11:31 | DVHPN2 ---
Subjective Patient continues to report having right upper quadrant as well as epigastric pain. States the pain is worse with taking deep breaths , also noted with eating. Reviewed: Care Plan, H&P, Labs, Medications Changes from previous H/P or p: No Changes Eyes: No Pain, No Vision change, No Conjunctivae inflammation, No Eyelid inflammation, No Other, No Redness ENT: No Ear pain, No Ear discharge, No Nose pain, No Nose discharge, No Nose congestion, No Mouth pain, No Mouth swelling, No Throat pain, No Throat swelling, No Other Cardiovascular: No Chest Pain; Palpitations; No Orthopnea, No Paroxysmal Noc. Dyspnea, No Edema, No Lt Headedness, No Other Respiratory: No Cough, No Dry, No Shortness of breath, No SOB with excertion, No Wheezing, No Hemoptysis, No Pleuritic Pain, No Sputum, No Other Gastrointestinal: No Nausea, No Vomiting; Abdominal Pain; No Diarrhea, No Constipation, No Melena, No Hematochezia, No Other Genitourinary: No Dysuria, No Frequency, No Incontinence, No Hematuria, No Retention, No Other Musculoskeletal: No other, No neck pain, No shoulder pain, No arm pain, No back pain, No hand pain, No leg pain, No foot pain Skin: No Rash, No Lesions, No Jaundice, No Bruising, No Other Objective Vitals Vital Signs Date Time Temp Pulse Resp B/P (MAP) Pulse Ox O2 Delivery O2 Flow Rate FiO2 09/17/24 09:00 98.1 69 18 104/64 (77) 97 98.1 09/16/24 20:00 Room Air* 0 21 Intake/Output Intake and Output 09/17/24 07:00 Intake Total 1255 ml Balance 1255 ml Intake Oral 955 ml IV Total 300 ml # Voids 4 General Appearance: Alert, Oriented X3, Cooperative, mild distress HEENT: Atraumatic, PERRLA Lungs: Clear to auscultation, Normal air movement Cardiovascular: Normal S1, Normal S2 Abdomen: Normal bowel sounds Genitourinary: No Apparent Abnormalities Back: Flank Tenderness, Midline Tenderness Musculoskeletal: Normal sensory function, Normal motor function Neuro: Normal gait, Normal speech Psych/Mental Status: Mental status NL, Mood NL Medications Current Medications Medications Dose Ordered Sig/Jayla Route Start Time Stop Time Status Last Admin Dose Admin Atorvastatin Calcium 20 mg HS PO 09/15/24 22:00 2/5/25 21:42 20 MG Pantoprazole Sodium 40 mg DAILY IV 09/16/24 10:00 09/17/24 09:32 40 MG Sodium Chloride 1,000 ml @ 60 mls/hr [id number] IV 09/15/24 17:15 09/17/24 10:29 60 MLS/HR Acetaminophen/ Hydrocodone Bitart 1 tab Q4HP PRN PO 09/15/24 17:15 Ondansetron HCl 4 mg Q4HP PRN IV 09/15/24 17:15 Docusate Sodium 100 mg BIDPRN PRN PO 09/15/24 17:15 Acetaminophen 650 mg Q6HP PRN PO 09/15/24 17:15 09/16/24 20:54 650 MG Morphine Sulfate 2 mg Q4HPRN PRN IV 09/15/24 17:15 Apixaban 5 mg BID PO 09/15/24 22:00 09/17/24 09:32 5 MG Nitroglycerin 0.4 mg Q5MINP PRN SL 09/15/24 19:15 Morphine Sulfate 2 mg Q30M PRN IV 09/15/24 19:15 Patient Own Medication 100 mg BID PO 09/16/24 10:30 UNV Flecainide Acetate 100 mg BID PO 09/16/24 22:00 09/17/24 09:32 100 MG Laboratory Results Laboratory Tests 09/16/24 06:07 Labs and/or images reviewed: Labs reviewed by me, Image(s) reviewed by me Assessment/Plan Assessment/Plan Impression: -obesity -atrial fibrillation -rule out acalculous cholecystitis -rule out GERD, peptic ulcer disease Plan: -events: HIDA scan negative for cholecystitis. GI consult recommends liver biopsy. Radiologist states there is no area to biopsy. Patient continues to complain of epigastric pain. Plans for EGD tomorrow. -PPI -continue rate control with flecainide -continue clear liquid Total time spent with patient discussing and formulating plan of care: 35 minutes. This medical document was created using an electronic medical record system with [employer] system. Although this document has been carefully reviewed, there may still be some phonetic and typographical errors. These areas are purely typographical due to imperfections of the software programs, and do not reflect any compromise in the patient's medical care. Plan discussed with: Patient, Other (RN) My Orders Orders - PRASANNA BRADY NP Procedure Category Date Status Time Clear Liq Diet DIET 09/16/24 Transmitted Dinner Date of Service: Sep 17, 2024 Billing Provider: PRASANNA BRADY NP Common Visit Codes: [id number] INP/OBS CARE(HIGH) PRASANNA BRADY NP Sep 17, 2024 11:31
[2024-09-17 19:19] LABS: INR 1.19 (0.9-1.15); Partial Thromboplastin Time 30.2 SEC (24.5-34.5); Prothrombin Time 12.4 sec (9.3-11.8)
--- NOTE | 2024-09-17 21:47 | DVHPN2 ---
Progress Note - Dictate Date Seen: Sep 17, 2024 (Patient seen at bedside at 10:00 a.m.) Medical Necessity Reason Pt with a Central, PICC or Fol: No Subjective No new complaints Patient resting comfortably No nausea vomiting Abdominal pain has improved HIDA scan is negative vital signs Vital Sign Date Time Temp Pulse Resp B/P (MAP) Pulse Ox O2 Delivery O2 Flow Rate FiO2 09/17/24 17:00 97.7 57 18 133/54 (80) 96 97.7 09/17/24 08:10 Room Air* 0 21 Total Intake and Output 09/16/24 09/16/24 09/17/24 15:00 23:00 07:00 Intake Total 300 ml 250 ml 705 ml Balance 300 ml 250 ml 705 ml medications Current Medications Medications Dose Ordered Sig/Jayla Route Start Time Stop Time Status Last Admin Dose Admin Atorvastatin Calcium 20 mg HS PO 09/15/24 22:00 09/16/24 21:42 20 MG Pantoprazole Sodium 40 mg DAILY IV 09/16/24 10:00 09/17/24 09:32 40 MG Sodium Chloride 1,000 ml @ 60 mls/hr [id number] IV 09/15/24 17:15 09/17/24 10:29 60 MLS/HR Acetaminophen/ Hydrocodone Bitart 1 tab Q4HP PRN PO 09/15/24 17:15 Ondansetron HCl 4 mg Q4HP PRN IV 09/15/24 17:15 Docusate Sodium 100 mg BIDPRN PRN PO 09/15/24 17:15 Acetaminophen 650 mg Q6HP PRN PO 09/15/24 17:15 09/16/24 20:54 650 MG Morphine Sulfate 2 mg Q4HPRN PRN IV 09/15/24 17:15 Apixaban 5 mg BID PO 09/15/24 22:00 09/17/24 09:32 5 MG Nitroglycerin 0.4 mg Q5MINP PRN SL 09/15/24 19:15 Morphine Sulfate 2 mg Q30M PRN IV 09/15/24 19:15 Patient Own Medication 100 mg BID PO 09/16/24 10:30 UNV Flecainide Acetate 100 mg BID PO 09/16/24 22:00 09/17/24 09:32 100 MG objective General: NAD, AAOX3 Chest: lung campos clear to auscultation Heart: RRR, no murmur Abdomen: Mild RUQ tenderness to palpation, +BS laboratory and microbiology Laboratory Tests 09/16/24 06:07 Test 09/16/24 06:07 Range/Units Serum Glucose 99 74-106 mg/dL Problems(with codes): (1) Generalized weakness (2) Intractable abdominal pain (3) Fatty liver Prognosis Plan I will keep patient NPO after midnight and arrange EGD in a.m. IR consult pending to discuss possible liver biopsy If discharged this can be arranged as an outpatient Hepatitis panel negative, tumor markers are pending, CEA is normal Plan discussed with: Patient, Other (Tracy Smith) NIELS CABRERA MD Sep 17, 2024 21:47
[2024-09-18] VITALS (8 sets, daily range): BP systolic 103–136; BP diastolic 53–77; PULSE 55–97; RESP 16–20; TEMP 97.7–98.6; O2SAT 67–100
--- NOTE | 2024-09-18 05:55 | DVH ---
EXAM: XR Chest, 1 View CLINICAL INDICATION: EGD TECHNIQUE: Frontal view of the chest. COMPARISON: None FINDINGS: LUNGS AND PLEURAL SPACES: Unremarkable. No consolidation. No pneumothorax. HEART: Unremarkable. No cardiomegaly. MEDIASTINUM: Unremarkable. Normal mediastinal contour. BONES/JOINTS: Unremarkable. No acute fracture. OTHER FINDINGS: . None. . . .. IMPRESSION: No acute cardiopulmonary process.
[2024-09-18] MEDS ORDERED: SODIUM CHLORIDE LOCK 10 ML ONE (13:37)
[2024-09-18] MEDS: LIDOCAINE VISCOUS 2% 15ML UD ONE (14:23)
[2024-09-18] MEDS: diphenhdrAMINE HCL 50 MG/1 ML VL ONE (14:24)
[2024-09-18] MEDS: MIDAZOLAM HCL 5 MG/ML-1ML VIAL ONE (14:24)
[2024-09-18] MEDS: fentaNYL CITRATE 100 MCG/2 ML VL ONE (14:24)
--- NOTE | 2024-09-18 14:35 | DVHOP2 ---
Operative Report DATE OF OPERATION: 09/18/24 PROCEDURE: Upper Endoscopy with biopsy. PREOPERATIVE INDICATION: The patient is a 58 -year-old female undergoing endoscopy for epigastric pain POSTOPERATIVE DIAGNOSES: 1. 0.5 cm sliding-type hiatal hernia with slightly irregular squamocolumnar junction minimal grade a erosive esophagitis 2. [id number] antral gastritis with pre-pyloric antral gastric erosions and tiny linear ulcers PROCEDURE PERFORMED BY: Niels Dean GI NURSE: [place] SCOPE: Olympus videoendoscope. ASA CLASS: 2. PREOPERATIVE MEDICATIONS: Versed 3 mg, Fentanyl 75 mcg, Benadryl 50 mg I administered moderate sedation throughout this _8_ minutes procedure. An independent trained observer pushed medications at my direction, and monitored the patient's level of consciousness and physiological status throughout. PROCEDURE IN DETAIL: After obtaining an informed consent, the patient was placed on left lateral decubitus position. The patient was then sedated with the above medications. A bite block was placed between her teeth. The endoscope was then passed through the oropharynx, into the esophagus, and through the stomach and pylorus up to the second and third part of the duodenum. The endoscope was then withdrawn. The 2nd and 3rd part of the duodenal and the duodenal bulb were normal. Duodenal biopsies were obtained. The pre-pyloric area and antrum showed mild antral gastritis with pre-pyloric antral gastric erosions tiny ulcers On retroflexion the fundus cardia and angularis were normal. Gastric biopsies were obtained. The endoscope was then withdrawn into the distal esophagus where she had a 5 mm extension of columnar epithelium into the distal esophagus. There was minimal grade a erosive esophagitis. GE junction biopsies were obtained. The remaining distal and proximal esophagus and oropharynx were unremarkable The patient tolerated the procedure well without difficulty. COMPLICATIONS : None SPECIMENS: Duodenal biopsy Gastric biopsy GE junction biopsy DISPOSITION: Transfer back to the floor Stable PLAN: 1. Await for biopsy result 2. Will place pt on Protonix 40 mg bid 3. Carafate 1 g p.o. twice a day 4. Resume soft mechanical diet advance as tolerated 5. Patient is stable for discharge from GI point of view 6. Outpatient follow up with me in 4-6 weeks to review results and discuss further management 7. DC aspirin NSAIDs smoking alcohol NIELS DEAN MD Sep 18, 2024 14:35
[2024-09-18] MEDS ORDERED: PANT40TA2 PO ×2 (14:38→16:22)
--- NOTE | 2024-09-18 14:38 | DVHDS2 ---
Discharge Summary Date of Admission Sep 15, 2024 at 19:06 Date of Discharge: Sep 18, 2024 Admitting Diagnosis Abdominal pain Labs/Diagnostic Data: Laboratory Results Test 09/17/24 18:31 09/16/24 15:05 09/16/24 06:07 09/15/24 13:11 Prothrombin Time 12.4 sec (9.3-11.8) Prothrombin Time INR 1.19 (0.9-1.15) Activated Partial Thromboplast Time 30.2 SEC (24.5-34.5) Tumor Marker Alpha Fetoprotein 2.5 ng/mL (0.0-9.2) CA 19-9 Antigen 5 U/mL (0-35) White Blood Count 8.2 10^3/uL (4.4-10.8) Red Blood Count 4.25 10^6/uL (4.0-5.20) Hemoglobin 13.6 g/dL (12.2-16.2) Hematocrit 40.3 % (36.0-46.0) Mean Corpuscular Volume 94.8 fL (80.0-100.0) Mean Corpuscular Hemoglobin 32.0 pg (28.0-32.0) Mean Corpuscular Hemoglobin Concent 33.7 g/dL (32.0-36.0) Red Cell Distribution Width 12.7 % (11.8-14.3) Platelet Count 236 10^3/uL (140-450) Mean Platelet Volume 8.3 fL (6.9-10.8) Neutrophils (%) (Auto) 64.3 % (37.0-80.0) Lymphocytes (%) (Auto) 23.7 % (10.0-50.0) Monocytes (%) (Auto) 7.8 % (0.0-12.0) Eosinophils (%) (Auto) 3.5 % (0.0-7.0) Basophils (%) (Auto) 0.7 % (0.0-2.0) Neutrophils # (Auto) 5.3 10 ^3/uL (1.6-8.6) Lymphocytes # (Auto) 1.9 10 ^3/uL (0.4-5.4) Monocytes # (Auto) 0.6 10 ^3/uL (0-1.3) Eosinophils # (Auto) 0.3 10 ^3/uL (0-0.8) Basophils # (Auto) 0.1 10 ^3/uL (0-0.2) Nucleated Red Blood Cells 0.0 % Sodium Level 139 mmol/L (136-145) Potassium Level 4.0 mmol/L (3.5-5.1) Chloride Level 103 mmol/L (98-107) Carbon Dioxide Level 27 mmol/L (20-31) Anion Gap 9 (5-15) Blood Urea Nitrogen 10 mg/dL (9-23) Creatinine 0.74 mg/dL (0.550-1.02) Glomerular Filtration Rate Calc 93 mL/min (>90) BUN/Creatinine Ratio 13.5 (10.0-20.0) Serum Glucose 99 mg/dL (74-106) Calcium Level 9.9 mg/dL (8.7-10.4) Total Bilirubin 0.6 mg/dL (0.2-1.0) Aspartate Amino Transferase (AST) 19 U/L (13-40) Alanine Aminotransferase (ALT) 23 U/L (7-40) Alkaline Phosphatase 112 U/L (46-116) Total Protein 7.1 g/dL (5.7-8.2) Albumin 4.5 g/dL (3.2-4.8) Carcinoembryonic Antigen 0.65 ng/mL (<=5.0) Hepatitis B Surface Antigen Negative (Negative) Hepatitis C Antibody Negative (Negative) Lipase 28 U/L (12-53) Other Laboratory Tests 09/16/24 06:07 Brief Hx & Hospital Course: History of Present Illness The patient is a 58-year-old female with past medical history of AFib, hypertension, and hyperlipidemia who presented to [facility] ED with complaint of epigastric abdominal pain. Patient reports symptoms as sharp, radiates to worse her right upper quadrant, back, feeling palpitation, rating 10/10 numeric scale, getting worse that prompted this visit. Patient was seen and evaluated in the ED, laboratory data shows WBC 9.4, platelets 244, sodium 139, potassium 4.2, BUN 10, creatinine 0.66, GFR 101, glucose 93, lipase 28, blood pressure 140/96, heart rate 69, temperature 98.1 F, O2 saturation 97% on room air. Gallbladder ultrasound revealing heterogeneous echotexture of the liver with a 7.7 cm echogenic area and multiple hypoechoic areas, this may reflect heterogeneous echotexture in the setting of underlying parenchymal disease, no discrete mass was identified, no acute biliary pathology. Please see medication orders section in the computer. On my assessment, patient denied chest pain, no headache, no dizziness, no nausea, no vomiting, no fever, no chills. Patient was admitted for further evaluation and medical management. Course of hospitalization: Patient had gallbladder ultrasound which was negative for any acute pathology. Patient had HIDA scan which was negative for cholelithiasis/cholecystitis, acalculous cholecystitis. GI consultation was obtained. Patient underwent underwent EGD which showed the following: POSTOPERATIVE DIAGNOSES: 1. 0.5 cm sliding-type hiatal hernia with slightly irregular squamocolumnar junction minimal grade a erosive esophagitis 2. [id number] antral gastritis with pre-pyloric antral gastric erosions and tiny linear ulcers Patient will be discharged home with Protonix 40 mg p.o. b.i.d. as well as Carafate 1 g tablet b.i.d.. She will follow up with Dr. Héctor Dean in 2-3 weeks. All questions answered. Physical examination General: Alert and Oriented x3. No acute distress. Well-nourished. Obese Eyes: EOMI. Anicteric. HENT: Moist mucous membranes. Lungs: Clear to auscultation bilaterally. No accessory muscle use. Cardiovascular: Regular rate and rhythm. No murmur. No JVD. Abdomen: Soft, non-tender and non-distended. No palpable masses. Extremities: No edema. Non-tender. Skin: No rashes or lesions. Warm. Neurologic: No focal neurological deficits. CN II-XII grossly intact, but not individually tested. Psychiatric: Cooperative. Appropriate mood and affect. Total time spent with patient discussing and formulating plan of care: 35 minutes. This medical document was created using an electronic medical record system with [employer] dictation system. Although this document has been carefully reviewed, there may still be some phonetic and typographical errors. These areas are purely typographical due to imperfections of the software programs, and do not reflect any compromise in the patient's medical care. Consults/Reason for consult Gastroenterology: Abdominal pain Condition at Discharge: Fair Final Diagnosis/Problems List Abdominal Pain Secondary diagnosis -obesity -atrial fibrillation -ruled out acalculous cholecystitis Discharge Disposition: Home Discharge Instruct/Medications Diet: Regular Activity: No Restrictions, As Tolerated Follow Up/Referral: Follow up with Dr. Héctor Dean in 2-3 weeks to go over results of biopsy Medications: Protonix 40 mg p.o. daily Continue all previous home medication 36 Discharge Statement: "Patient was advised to return to the ER or call 911 if any headaches, dizziness, shortness of breath, chest pain, abdominal pain, bleeding, fevers, or worsening of medical condition. Patient was counseled about treatment plan, medications, possible side effects, patientverbalized understanding. All questions were answered to the best of my ability. This discharge took greater then 30 minutes in planning, reviewing documentation, counseling the patient, and discussing with other team members." ASSESSMENT ASSESSMENT Assessment Abdominal Pain Date of Service: Sep 18, 2024 Billing Provider: PRASANNA BRADY NP Common Visit Codes: 29624-LQI/OBS DISCH DAY >30min PRASANNA BRADY NP Sep 18, 2024 14:38
[2024-09-18] MEDS ORDERED: SUCR1TAB31 OR (16:22)
[2024-09-18] MEDS: SUCRALFATE 1 GM/10 ML ORAL SUSP PO SCH (17:00)
== END 2024-09-18 17:36 | disposition home or self-care (01) | DRG 384 ==
LOC: ER 11:40 → OVERFLOW 19:06 → CENTRAL 23:20
PROVIDERS: ADMIT Nurse Practitioner Family; ATTEND Nurse Practitioner Acute Care
PROC: 0DB68ZX Excision of Stomach, Via Natural or Artificial Opening Endoscopic, Diagnostic (ICD-10-PCS; 2024-09-18)
PROC: 0DB48ZX Excision of Esophagogastric Junction, Via Natural or Artificial Opening Endoscopic, Diagnostic (ICD-10-PCS; 2024-09-18)
PROC: 0DB98ZX Excision of Duodenum, Via Natural or Artificial Opening Endoscopic, Diagnostic (ICD-10-PCS; principal; 2024-09-18 14:19)
DX: K25.9 Gastric ulcer, unspecified as acute or chronic, without hemorrhage or perforation (principal); Z68.43 Body mass index [BMI] 50.0-59.9, adult; K29.70 Gastritis, unspecified, without bleeding; I48.91 Unspecified atrial fibrillation; E66.9 Obesity, unspecified; E78.5 Hyperlipidemia, unspecified; I10 Essential (primary) hypertension; K76.0 Fatty (change of) liver, not elsewhere classified; K44.9 Diaphragmatic hernia without obstruction or gangrene; Z83.3 Family history of diabetes mellitus; Z79.899 Other long term (current) drug therapy
CPT/HCPCS: 36415; 43239; 71045; 76705; 78226; 80053; 82105; 82378; 83690; 85025; 85610; 85730; 86301; 86803; 86850; 86900; 86901; 87340; 93005; G0378; J2250; J2470